=== PATIENT | female | born 1985 | race Caucasian/White ===

== ENCOUNTER 2019-10-09 14:54 | Emergency (ER) | payer BC, OTHER ==
[~2019-10-09] VITALS: Ht 182.9 cm; Wt 106.0 kg
--- NOTE | 2019-10-09 15:52 | NUR ---
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
[2019-10-09 16:03] VITALS: BP 136/58
--- NOTE | 2019-10-09 16:03 | NUR ---
THIS IS A 34 YO F W/ C/O RT ANKLE PAIN SINCE THURSDAY. DENIES INJ. 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 DENIES CP/SOB. VS STABLE. NADN. PT IS RESTING ON GURNEY W/ ED PROVIDER AT BEDSIDE FOR EVAL. DEANNE LIGHT IN REACH. AWAITING ORDERS.
[2019-10-09] MEDS ORDERED: IBUPROFEN 600 MG TABLET PO ONE (16:30)
[2019-10-09] MEDS ORDERED: IBUPROFEN 600 MG TABLET ONE (16:51)
--- NOTE | 2019-10-09 16:53 | NUR ---
PT MEDICATED PER EMAR.
== END 2019-10-09 17:34 | disposition home or self-care (01) ==
LOC: ED 17:05
DX: M25.571 Pain in right ankle and joints of right foot (principal); Z86.718 Personal history of other venous thrombosis and embolism
CPT/HCPCS: 99284